=== PATIENT | male | born 1965 | race Caucasian/White ===

== ENCOUNTER 2017-02-15 09:38 | Inpatient (IN) | payer OTHER ==
[~2017-02-15] VITALS: Ht 175.3 cm; Wt 113.3 kg
[~2017-02-15 09:38] MED LIST: ALLO100T30 PO; ASPI-515 PO; ATOR10TA PO; METF500T4 PO; METO25TA35 PO; MULT-224 PO; OMEP20TA62 PO; RAMIPRIL PO; UBID300C PO
[2017-02-15] MEDS ORDERED: SODIUM CHLORIDE 0.9% 1,000ML IVBOLUS ONE (10:00)
[2017-02-15] MEDS ORDERED: ASPIRIN 81 MG TABLET CHEW PO ONE (10:00)
[2017-02-15] MEDS ORDERED: SODIUM CHLORIDE FLUSH 10ML SYR IVF ONE (10:00)
[2017-02-15] MEDS ORDERED: FENO145T32 PO (10:02)
[2017-02-15] MEDS ORDERED: AMIT50TA PO (10:02)
[2017-02-15] MEDS ORDERED: DILT120C64 PO (10:02)
[2017-02-15 10:17] LABS: HEMATOCRIT 43.7 % (39.2-51.8); HEMOGLOBIN 14.7 g/dL (13.7-18.0); WHITE BLOOD COUNT 7.2 x10^3/uL (3.4-10)
[2017-02-15] MEDS ORDERED: ASPIRIN 81 MG TABLET CHEW ONE (10:20)
[2017-02-15 10:30] LABS: ASPARTATE AMINO TRANSFERASE 50 U/L (15-37); BLOOD UREA NITROGEN 16 mg/dL (7-18)
[2017-02-15 10:35] LABS: IS PT STATUS REG ER OR PRE ER? YES
[2017-02-15] MEDS ORDERED: SODIUM CHLORIDE FLUSH 10ML SYR IVF PRN (11:30)
[2017-02-15 13:00] VITALS: BP 117/69
[2017-02-15] MEDS: ENOXAPARIN 40 MG/0.4 ML SQ SCH (13:00)
[2017-02-15] MEDS ORDERED: NITROGLYCERIN 0.4 MG/SPRAY SL PRN (13:00)
[2017-02-15] MEDS ORDERED: DOCUSATE 100 MG CAPSULE PO PRN (13:00)
[2017-02-15] MEDS ORDERED: DEXTROSE 50%, 50ML SYRINGE IVPush PRN (13:00)
[2017-02-15] MEDS ORDERED: ONDANSETRON ODT 4 MG PO PRN (13:00)
[2017-02-15] MEDS ORDERED: LABETALOL 5MG/ML, 20ML IVPush PRN (13:00)
[2017-02-15] MEDS: INSULIN ASPART 100 UNITS/ML, PEN SQ-INSULIN SCH ×3 (13:00→20:35)
[2017-02-15] MEDS ORDERED: HYDROcodone/APAP 5/325 TABLET PO PRN (13:00)
[2017-02-15] MEDS ORDERED: DEXTROSE 4 GM TAB.CHEW PO PRN (13:00)
[2017-02-15] MEDS ORDERED: BISACODYL 10 MG SUPP PR PRN (13:00)
[2017-02-15] MEDS ORDERED: POLYETHYLENE GLYCOL 17 GM PACKET PO PRN (13:00)
[2017-02-15] MEDS ORDERED: GLUCAGON 1 MG IM PRN (13:00)
[2017-02-15] MEDS ORDERED: ONDANSETRON 2MG/ML, 2ML IVPush PRN (13:00)
[2017-02-15] MEDS ORDERED: morphine SULFATE 10 MG/ML, 1ML IVPush PRN (13:00)
[2017-02-15] MEDS ORDERED: ACETAMINOPHEN 325 MG TABLET PO PRN (13:00)
[2017-02-15 14:00] VITALS: BP_SYST 110; BP_SYST 115; BP_SYST 95; BP_DIAS 50; BP_DIAS 65; BP_DIAS 68
[2017-02-15] MEDS: SODIUM CHLORIDE 0.9% 1,000 ML IV SCH (14:25)
[2017-02-15 14:35] VITALS: BP 117/69
[2017-02-15] MEDS ORDERED: RAMI2.5C PO (15:00)
[2017-02-15] MEDS ORDERED: METO25TA91 PO (15:00)
[2017-02-15] MEDS ORDERED: ATOR-2 PO (15:00)
[2017-02-15 17:04] LABS: IS PT STATUS REG ER OR PRE ER? NO
[2017-02-15] MEDS ORDERED: ATORVASTATIN 80 MG TABLET PO SCH (21:00)
[2017-02-15] MEDS ORDERED: AMITRIPTYLINE 100 MG TABLET PO SCH (21:00)
[2017-02-15] MEDS ORDERED: ALLOPURINOL 300 MG TABLET PO SCH (21:00)
[2017-02-15] MEDS ORDERED: AMITRIPTYLINE 50 MG TABLET PO SCH (21:00)
[2017-02-15] MEDS ORDERED: ATORVASTATIN 20 MG TABLET PO SCH (21:00)
[2017-02-15 21:02] VITALS: BP 117/70
[2017-02-15] MEDS: METOPROLOL TARTRATE 25 MG TABLET PO SCH (22:00)
[2017-02-15] MEDS: SODIUM CHLORIDE FLUSH 10ML SYR IVF SCH (22:01)
[2017-02-15 22:58] LABS: IS PT STATUS REG ER OR PRE ER? NO
[2017-02-16] MEDS: SODIUM CHLORIDE 0.9% 1,000 ML IV SCH ×2 (01:24→10:46)
[2017-02-16 02:00] VITALS: BP 113/73
[2017-02-16 06:10] LABS: HEMOGLOBIN 13.5 g/dL (13.7-18.0); WHITE BLOOD COUNT 7.3 x10^3/uL (3.4-10)
[2017-02-16 06:24] LABS: BLOOD UREA NITROGEN 17 mg/dL (7-18)
[2017-02-16 06:57] VITALS: BP 104/67
[2017-02-16] MEDS: INSULIN ASPART 100 UNITS/ML, PEN SQ-INSULIN SCH ×3 (07:00→16:00)
[2017-02-16] MEDS: OMEPRAZOLE 20 MG CAPSULE.DR PO SCH (07:30)
[2017-02-16] MEDS ORDERED: REGADENOSON 0.4 MG/5 ML SYRINGE ONE (08:38)
[2017-02-16] MEDS ORDERED: ASPIRIN 81 MG TABLET EC PO SCH (09:00)
[2017-02-16] MEDS ORDERED: METOPROLOL TARTRATE 25 MG TABLET PO SCH (09:00)
[2017-02-16] MEDS ORDERED: ALLOPURINOL 300 MG TABLET PO SCH (09:00)
[2017-02-16] MEDS ORDERED: RAMIPRIL 2.5 MG CAPSULE PO SCH (09:00)
[2017-02-16] MEDS ORDERED: DILTIAZEM 120 MG CAP.ER.24H PO SCH (09:00)
[2017-02-16] MEDS ORDERED: MULTIVITAMIN 1 TABLET PO SCH (09:00)
[2017-02-16] MEDS ORDERED: FENOFIBRATE 145 MG TABLET PO SCH (09:00)
[2017-02-16 10:43] VITALS: BP 160/82
[2017-02-16] MEDS: METOPROLOL TARTRATE 25 MG TABLET PO SCH (10:47)
[2017-02-16] MEDS: SODIUM CHLORIDE FLUSH 10ML SYR IVF SCH (10:47)
[2017-02-16 12:24] VITALS: BP 116/72
[2017-02-16 12:26] VITALS: BP_SYST 124; BP_SYST 125; BP_DIAS 81; BP_DIAS 83
[2017-02-16] MEDS ORDERED: LORazepam 2 MG/ML, 1ML IVPush PRN (12:30)
[2017-02-16] MEDS: ENOXAPARIN 40 MG/0.4 ML SQ SCH (13:00)
== END 2017-02-16 17:01 | disposition home or self-care (01) | DRG 74 ==
LOC: ED 11:29 → 4EST 11:30 → ED 11:54
PROVIDERS: ADMIT Internal Medicine; ATTEND Internal Medicine
DX: G90.9 Disorder of the autonomic nervous system, unspecified (principal); I10 Essential (primary) hypertension; E86.1 Hypovolemia; E11.9 Type 2 diabetes mellitus without complications; E66.9 Obesity, unspecified; E78.5 Hyperlipidemia, unspecified; G47.33 Obstructive sleep apnea (adult) (pediatric); K21.9 Gastro-esophageal reflux disease without esophagitis; M10.9 Gout, unspecified; Z68.36 Body mass index [BMI] 36.0-36.9, adult; F41.9 Anxiety disorder, unspecified; Z71.3 Dietary counseling and surveillance; Z95.0 Presence of cardiac pacemaker
CPT/HCPCS: 36415; 71010; 78452; 80048; 80053; 80061; 82962; 83036; 83880; 84484; 85025; 85610; 93005; 93017; 93306; 93880; 96360; 96361; J1815; J2785; A9502; C9898; J7030

== ENCOUNTER → 2019-10-01 | Outpatient (CLI) | payer OTHER ==
[~2019-10-01] MED LIST changes: +AMIT50TA PO; +ATOR-2 PO; +DILT120C64 PO; +FENO145T32 PO; +METF500T17 PO; -METF500T4 PO; +METO25TA91 PO; -MULT-224 PO; +MULT-642 PO; +RAMI2.5C2 PO
== END | disposition home or self-care (01) ==
LOC: CVU 15:30
PROVIDERS: ATTEND Internal Medicine Cardiovascular Disease
DX: I44.7 Left bundle-branch block, unspecified (principal); E11.9 Type 2 diabetes mellitus without complications
CPT/HCPCS: 93306

== ENCOUNTER 2020-01-03 19:38 | Observation (INO) | payer OTHER ==
[~2020-01-03] VITALS: Ht 175.3 cm; Wt 108.0 kg
[2020-01-03] MEDS ORDERED: SODIUM CHLORIDE FLUSH 10ML SYR IVF ONE (20:00)
[2020-01-03 20:19] LABS: BASOPHILS # (AUTO) 0.04 x10^3/uL (0-0.1); BASOPHILS % (AUTO) 1 % (0-1); EOSINOPHILS # (AUTO) 0.09 x10^3/uL (0-0.4); EOSINOPHILS % (AUTO) 1 % (1-7); LYMPHOCYTES # (AUTO) 2.73 x10^3/uL (1-3.4); LYMPHOCYTES % (AUTO) 35 % (22-44); MD NO; MEAN CORPUSCULAR HEMOGLOBIN 31.1 pg (27.5-34.5); MEAN CORPUSCULAR HGB CONC 33.7 g/dL (33.2-36.2); MEAN CORPUSCULAR VOLUME 92.6 fL (81-97); MEAN PLATELET VOLUME 7.8 fL (7.4-10.4); MONOCYTES # (AUTO) 0.68 x10^3/uL (0.2-0.8); MONOCYTES % (AUTO) 9 % (2-9); NEUTROPHILS # (AUTO) 4.31 x10^3/uL (1.8-6.8); NEUTROPHILS % (AUTO) 55 % (42-75); PLATELET COUNT 352 x10^3/uL (130-400); RED CELL DISTRIBUTION WIDTH 14.2 % (9.4-14.8)
[2020-01-03 20:30] LABS: ALANINE AMINOTRANSFERASE 49 U/L (12-78); ANION GAP 8 mmol/L (5-15); CALCIUM 9.2 mg/dL (8.5-10.1); CHLORIDE 108 mmol/L (98-107); CREATININE 0.88 mg/dL (0.7-1.3)
[2020-01-03 20:34] LABS: ALKALINE PHOSPHATASE 59 U/L (45-117); BILIRUBIN,TOTAL 0.5 mg/dL (0.2-1.0); TOTAL PROTEIN 7.7 g/dL (6.4-8.2); TROPONIN I < 0.015 ng/mL (0.000-0.045)
--- NOTE | 2020-01-03 20:47 | NUR ---
ALL RESULTS ARE BACK AT THIS TIME. CHART UP FOR RECHECK.
--- NOTE | 2020-01-03 20:55 | NUR ---
PT AMBULATED TO RESTROOM AND BACK WITH STEADY GAIT.
--- NOTE | 2020-01-03 22:30 | NUR ---
MD AT BEDSIDE TO UPDATE PT ON POC. PT TO BE ADMIT.
[2020-01-03] MEDS ORDERED: NITROGLYCERIN 0.4 MG/SPRAY SL PRN (23:30)
[2020-01-03] MEDS ORDERED: BISACODYL 5 MG EC TABLET PO PRN (23:30)
[2020-01-03] MEDS ORDERED: NITROGLYCERIN 0.4 MG BOTTLE (25 TABS) SL PRN (23:30)
[2020-01-03] MEDS ORDERED: morphine SULFATE 10 MG/ML, 1ML IV PRN (23:30)
--- NOTE | 2020-01-03 23:34 | NUR ---
Hospitalist states pt to be npo post midnight, but can have food now. MD aware coffee cart closed until midnight and approved pt to have food right at midnight, when the coffee cart opens.
--- NOTE | 2020-01-04 | NUR ---
Pt tx to hospital bed and given sandwich. No other immediate needs at this time.
[2020-01-04 00:18] LABS: CHOL/HDL RATIO 7.5; CHOLESTEROL, TOTAL 248 mg/dL (140-239); HDL CHOL % 13 % (26-37); HDL CHOLESTEROL (DIRECT) 33 mg/dL (40-60); TRIGLYCERIDES 499 mg/dL (50-200); TROPONIN I < 0.015 ng/mL (0.000-0.045)
--- NOTE | 2020-01-04 00:45 | NUR ---
Break RN: assumed care of pt on behalf of primay RN for lunch break only. pt resting in position of comfort on hospital bed. watching TV. no apparent distress. no c/o at this time. awaiting bed assignment fo admit
--- NOTE | 2020-01-04 01:00 | NUR ---
Break RN: pt c/o sternal CP at 6/10 that is intermittent. EKG has been to bedside. pt placed on O2 at 2L via NC and reports a decrease of pain to 2/10. pt medicated with 1 nitro SL. report to Rufus CHAN at bedside
[2020-01-04] MEDS ORDERED: NITROGLYCERIN SINGLE TAB 0.4 MG SL ONE (01:04)
--- NOTE | 2020-01-04 01:47 | NUR ---
Pt states decrease in chest pain shortly after nitro, but "it just wont fully go away."
[2020-01-04 02:51] VITALS: BP 131/80
[2020-01-04 03:33] LABS: TROPONIN I < 0.015 ng/mL (0.000-0.045)
[2020-01-04] MEDS ORDERED: REGADENOSON 0.4 MG/5 ML SYRINGE ONE (08:08)
[2020-01-04] MEDS: INSULIN LISPRO 100 UNITS/ML, PEN SQ-INSULIN SCH ×4 (08:14→22:35)
[2020-01-04 08:25] VITALS: BP 117/71
[2020-01-04] MEDS: RAMIPRIL 2.5 MG CAPSULE PO SCH (08:27)
[2020-01-04] MEDS: MULTIVITAMIN 1 TABLET PO SCH (08:28)
[2020-01-04] MEDS: METOPROLOL SUCCINATE 25 MG TAB.ER.24H PO SCH ×2 (08:29→22:33)
[2020-01-04] MEDS: OMEPRAZOLE 20 MG CAPSULE.DR PO SCH (08:29)
[2020-01-04] MEDS: ASPIRIN 81 MG TABLET EC PO SCH (08:29)
[2020-01-04] MEDS: ENOXAPARIN 40 MG/0.4 ML SQ SCH (08:30)
[2020-01-04] MEDS: SODIUM CHLORIDE FLUSH 10ML SYR IVF SCH ×2 (08:30→21:00)
[2020-01-04] MEDS ORDERED: FENOFIBRATE 145 MG TABLET PO SCH ×2 (09:00→21:00)
[2020-01-04 16:18] VITALS: BP 109/72
[2020-01-04 21:00] VITALS: BP 136/80
[2020-01-04] MEDS ORDERED: DILTIAZEM 120 MG CAP.ER.24H PO SCH (21:00)
[2020-01-04] MEDS ORDERED: ATORVASTATIN 80 MG TABLET PO SCH (21:00)
[2020-01-04] MEDS ORDERED: ALLOPURINOL 300 MG TABLET PO SCH (21:00)
[2020-01-04] MEDS ORDERED: AMITRIPTYLINE 50 MG TABLET PO SCH (21:00)
[2020-01-05 03:55] VITALS: BP 115/73
[2020-01-05 07:28] VITALS: BP 117/74
[2020-01-05] MEDS: ENOXAPARIN 40 MG/0.4 ML SQ SCH (07:30)
[2020-01-05] MEDS: INSULIN LISPRO 100 UNITS/ML, PEN SQ-INSULIN SCH (08:13)
[2020-01-05] MEDS: SODIUM CHLORIDE FLUSH 10ML SYR IVF SCH (08:14)
[2020-01-05] MEDS ORDERED: ISOSORBIDE MONONITRATE ER 30 MG TABLET PO SCH (09:00)
[2020-01-05] MEDS: METOPROLOL SUCCINATE 25 MG TAB.ER.24H PO SCH (10:58)
[2020-01-05] MEDS: OMEPRAZOLE 20 MG CAPSULE.DR PO SCH (10:58)
[2020-01-05] MEDS: ASPIRIN 81 MG TABLET EC PO SCH (10:58)
[2020-01-05] MEDS: RAMIPRIL 2.5 MG CAPSULE PO SCH (10:58)
[2020-01-05] MEDS: MULTIVITAMIN 1 TABLET PO SCH (10:58)
[2020-01-05] MEDS ORDERED: ISOS30TA8 PO (11:23)
== END 2020-01-05 11:40 | disposition home or self-care (01) ==
LOC: ED 22:40 → EDIP 22:59 → INTOOBSV 22:59 → 5SO 01-04 02:39 → DCLOUNGE 01-05 11:23
PROVIDERS: ADMIT Student in an Organized Health Care Education/Training Program; ATTEND Internal Medicine Infectious Disease
DX: I20.0 Unstable angina (principal); I49.5 Sick sinus syndrome; I44.7 Left bundle-branch block, unspecified; I10 Essential (primary) hypertension; E78.1 Pure hyperglyceridemia; E11.9 Type 2 diabetes mellitus without complications; M10.9 Gout, unspecified; E78.5 Hyperlipidemia, unspecified; Z79.899 Other long term (current) drug therapy; Z95.0 Presence of cardiac pacemaker
CPT/HCPCS: 36415; 71045; 78452; 80053; 80061; 82962; 84484; 85025; 93005; 93017; 93308; 93321; 93325; 99285; A9502; C9898; G0378; J2785